=== PATIENT | female | born 1935 | race Caucasian/White ===

== ENCOUNTER 2018-09-08 12:01 | Inpatient (IN) | payer MEDICARE, OTHER ==
[~2018-09-08] VITALS: Ht 160 cm; Wt 54.0 kg
[2018-09-08] MEDS ORDERED: CARBIDOPA/LEVODOPA CR 50-200MG TABLET.SA PO SCH ×2 (12:30→21:00)
[2018-09-08] MEDS ORDERED: CARBIDOPA/LEVODOPA CR 50-200MG TABLET.SA PO ONE (12:31)
[2018-09-08] MEDS ORDERED: LEVO75TA7 PO (12:40)
[2018-09-08] MEDS ORDERED: POLYVINYL ALCOHOL OPHT DROPS 15 ML BOTTLE ONE (12:44)
[2018-09-08] MEDS ORDERED: POLYVINYL ALCOHOL OPHT DROPS 15 ML BOTTLE OP ONE (12:45)
[2018-09-08] MEDS ORDERED: ASPI81TA31 PO (12:52)
[2018-09-08] MEDS ORDERED: LEVO100T10 PO (12:52)
[2018-09-08] MEDS ORDERED: ATOR20TA PO (12:52)
[2018-09-08] MEDS ORDERED: CARB1TAB40 PO ×2 (12:52)
[2018-09-08] MEDS ORDERED: OXYC-451 PO (12:52)
[2018-09-08] MEDS ORDERED: ALPR0.5T8 PO (12:52)
[2018-09-08] MEDS ORDERED: QUET25TA34 PO (12:52)
[2018-09-08] MEDS ORDERED: OXYB5TAB11 PO (12:52)
[2018-09-08 15:00] VITALS: BP 104/46
[2018-09-08] MEDS ORDERED: MAGNESIUM HYDROXIDE 30 ML LIQUID UDC PO PRN (15:15)
[2018-09-08] MEDS ORDERED: MAG HYDROX/AL HYDROX/SIMETH 30 ML LIQUID UDC PO PRN (15:15)
[2018-09-08] MEDS ORDERED: LORAZEPAM 0.5 MG TABLET PO PRN (15:15)
[2018-09-08] MEDS ORDERED: LORAZEPAM 1 MG TABLET PO PRN (16:15)
[2018-09-08] MEDS: CARBIDOPA/LEVODOPA CR 50-200MG TABLET.SA PO SCH ×2 (17:22→20:39)
[2018-09-08] MEDS: ACETAMINOPHEN 325 MG TABLET PO PRN (18:13)
[2018-09-08 20:25] VITALS: BP 139/53
[2018-09-08] MEDS: ATORVASTATIN 20 MG TABLET PO SCH (20:39)
[2018-09-08] MEDS: risperiDONE 0.5 MG TABLET PO SCH (20:39)
[2018-09-09] MEDS: LEVOTHYROXINE SODIUM 100 MCG TABLET PO SCH (06:24)
[2018-09-09 07:30] VITALS: BP 117/52
[2018-09-09] MEDS ORDERED: OXYBUTYNIN CHLORIDE 5 MG TABLET PO SCH (09:00)
[2018-09-09] MEDS ORDERED: ASPIRIN 81 MG TAB.CHEW PO SCH (09:00)
[2018-09-09] MEDS: CARBIDOPA/LEVODOPA CR 50-200MG TABLET.SA PO SCH ×4 (09:03→20:48)
[2018-09-09] MEDS: OXYBUTYNIN XL 5 MG TABSR PO SCH (09:03)
[2018-09-09] MEDS: risperiDONE 0.5 MG TABLET PO SCH ×2 (09:03→20:48)
[2018-09-09] MEDS: ACETAMINOPHEN 325 MG TABLET PO PRN ×2 (09:03→23:54)
[2018-09-09 15:21] VITALS: BP 165/52
[2018-09-09] MEDS: ATORVASTATIN 20 MG TABLET PO SCH (20:48)
[2018-09-10] MEDS: LEVOTHYROXINE SODIUM 100 MCG TABLET PO SCH (06:33)
[2018-09-10 07:30] VITALS: BP 132/56
[2018-09-10] MEDS: CARBIDOPA/LEVODOPA CR 50-200MG TABLET.SA PO SCH ×4 (08:17→20:17)
[2018-09-10] MEDS: OXYBUTYNIN XL 5 MG TABSR PO SCH (08:17)
[2018-09-10] MEDS: risperiDONE 0.5 MG TABLET PO SCH ×2 (08:17→20:17)
[2018-09-10 16:48] VITALS: BP 99/46
[2018-09-10] MEDS: ATORVASTATIN 20 MG TABLET PO SCH (20:17)
[2018-09-10 21:54] VITALS: BP 112/46
[2018-09-11] MEDS: LEVOTHYROXINE SODIUM 100 MCG TABLET PO SCH (06:10)
[2018-09-11 07:30] VITALS: BP 119/69
[2018-09-11] MEDS: risperiDONE 0.5 MG TABLET PO SCH (08:13)
[2018-09-11] MEDS: OXYBUTYNIN XL 5 MG TABSR PO SCH (08:13)
[2018-09-11] MEDS: CARBIDOPA/LEVODOPA CR 50-200MG TABLET.SA PO SCH ×4 (08:14→20:55)
[2018-09-11 16:00] VITALS: BP 124/65
[2018-09-11] MEDS: ATORVASTATIN 20 MG TABLET PO SCH (20:55)
[2018-09-11] MEDS: risperiDONE 1 MG TABLET PO SCH (20:56)
[2018-09-11 21:11] VITALS: BP 128/38
[2018-09-12] MEDS: LEVOTHYROXINE SODIUM 100 MCG TABLET PO SCH (06:04)
[2018-09-12 07:30] VITALS: BP 116/52
[2018-09-12] MEDS: risperiDONE 1 MG TABLET PO SCH ×2 (08:28→21:43)
[2018-09-12] MEDS: OXYBUTYNIN XL 5 MG TABSR PO SCH (08:29)
[2018-09-12] MEDS: CARBIDOPA/LEVODOPA CR 50-200MG TABLET.SA PO SCH ×4 (08:29→21:42)
[2018-09-12 16:00] VITALS: BP 14/60
[2018-09-12 20:21] VITALS: BP 112/46
[2018-09-12] MEDS: ATORVASTATIN 20 MG TABLET PO SCH (21:43)
[2018-09-13] MEDS: LEVOTHYROXINE SODIUM 100 MCG TABLET PO SCH (06:29)
[2018-09-13 07:30] VITALS: BP 100/42
[2018-09-13] MEDS: risperiDONE 1 MG TABLET PO SCH ×2 (08:15→20:24)
[2018-09-13] MEDS: CARBIDOPA/LEVODOPA CR 50-200MG TABLET.SA PO SCH ×4 (08:15→20:28)
[2018-09-13] MEDS: OXYBUTYNIN XL 5 MG TABSR PO SCH (08:16)
[2018-09-13 16:06] VITALS: BP 129/57
[2018-09-13 20:00] VITALS: BP 119/47
[2018-09-13] MEDS: ATORVASTATIN 20 MG TABLET PO SCH (20:24)
[2018-09-14] MEDS: LEVOTHYROXINE SODIUM 100 MCG TABLET PO SCH (06:11)
[2018-09-14 07:30] VITALS: BP 118/38
[2018-09-14] MEDS: OXYBUTYNIN XL 5 MG TABSR PO SCH (08:52)
[2018-09-14] MEDS: risperiDONE 1 MG TABLET PO SCH ×2 (08:52→20:03)
[2018-09-14] MEDS: CARBIDOPA/LEVODOPA CR 50-200MG TABLET.SA PO SCH ×4 (08:52→20:03)
[2018-09-14 16:08] VITALS: BP 119/56
[2018-09-14 20:00] VITALS: BP 135/51
[2018-09-14] MEDS: ATORVASTATIN 20 MG TABLET PO SCH (20:03)
[2018-09-14] MEDS: TEMAZEPAM 7.5 MG CAPSULE PO PRN (21:06)
[2018-09-15] MEDS: LEVOTHYROXINE SODIUM 100 MCG TABLET PO SCH (06:34)
[2018-09-15 07:30] VITALS: BP 118/47
[2018-09-15] MEDS: OXYBUTYNIN XL 5 MG TABSR PO SCH (09:15)
[2018-09-15] MEDS: risperiDONE 1 MG TABLET PO SCH ×2 (09:15→21:00)
[2018-09-15] MEDS: CARBIDOPA/LEVODOPA CR 50-200MG TABLET.SA PO SCH ×4 (09:15→21:00)
[2018-09-15 16:09] VITALS: BP 120/64
[2018-09-15 20:06] VITALS: BP 130/50
[2018-09-15] MEDS: DOCUSATE SODIUM 100 MG CAPSULE PO SCH (21:00)
[2018-09-16] MEDS: ACETAMINOPHEN 325 MG TABLET PO PRN ×3 (04:04→23:12)
[2018-09-16] MEDS: LEVOTHYROXINE SODIUM 100 MCG TABLET PO SCH (07:17)
[2018-09-16 07:30] VITALS: BP 122/85
[2018-09-16 07:50] LABS: BASOPHILS # (AUTO) 0.1 K/uL (0.0-8.0); BASOPHILS % (AUTO) 1.4 % (0.0-2.0); EOSINOPHILS # (AUTO) 0.2 K/uL (0.0-0.7); EOSINOPHILS % (AUTO) 2.6 % (0.0-7.0); HEMATOCRIT 32.7 % (31.2-41.9); HEMOGLOBIN 11.2 g/dL (10.9-14.3); LYMPHOCYTES # (AUTO) 0.9 K/uL (20.0-40.0); LYMPHOCYTES % (AUTO) 15.1 % (20.5-51.5); MEAN CORPUSCULAR HEMOGLOBIN 31.7 uug (24.7-32.8); MEAN CORPUSCULAR HGB CONC 34 g/dL (32.3-35.6); MEAN CORPUSCULAR VOLUME 92.3 fL (75.5-95.3); MONOCYTES # (AUTO) 0.7 K/uL (2.0-10.0); MONOCYTES % (AUTO) 12.3 % (0.0-11.0); NEUTROPHILS # (AUTO) 4.1 K/uL (1.8-8.9); NEUTROPHILS % (AUTO) 68.6 % (38.5-71.5); PLATELET COUNT (AUTO) 309 K/uL (179-408); RED BLOOD CELL COUNT(AUTO) 3.54 MIL/uL (3.63-4.92); WHITE BLOOD COUNT (AUTO) 5.9 K/uL (3.8-11.8)
[2018-09-16 08:07] LABS: ALKALINE PHOSPHATASE 49 U/L (50-136); ASPARTATE AMINOTRANSFERASE 10 U/L (15-37); BILIRUBIN,TOTAL 0.5 mg/dL (0.2-1.0); CARBON DIOXIDE 29 mmol/L (21-32); CHLORIDE 103 mmol/L (98-107); CREATININE 0.7 mg/dL (0.6-1.3); GLUCOSE 117 mg/dL (74-106); MAGNESIUM 2.3 mg/dL (1.8-2.4); PHOSPHOROUS 3.8 mg/dL (2.5-4.9); TOTAL PROTEIN, SERUM 7.1 g/dL (6.4-8.2); UREA NITROGEN, BLOOD 20 mg/dL (7-18)
[2018-09-16 08:21] LABS: ALANINE AMINOTRANSFERASE < 6 U/L (14-59)
[2018-09-16] MEDS: CARBIDOPA/LEVODOPA CR 50-200MG TABLET.SA PO SCH ×4 (09:34→20:09)
[2018-09-16] MEDS: OXYBUTYNIN XL 5 MG TABSR PO SCH (09:34)
[2018-09-16] MEDS: risperiDONE 1 MG TABLET PO SCH ×2 (09:34→20:10)
[2018-09-16 16:16] VITALS: BP 117/50
[2018-09-16] MEDS: DOCUSATE SODIUM 100 MG CAPSULE PO SCH (20:09)
[2018-09-16 21:07] VITALS: BP 114/45
[2018-09-16] MEDS: TEMAZEPAM 7.5 MG CAPSULE PO PRN (22:05)
[2018-09-17 07:30] VITALS: BP 129/58
[2018-09-17] MEDS: LEVOTHYROXINE SODIUM 100 MCG TABLET PO SCH (07:55)
[2018-09-17] MEDS: OXYBUTYNIN XL 5 MG TABSR PO SCH (08:30)
[2018-09-17] MEDS: risperiDONE 1 MG TABLET PO SCH ×2 (08:30→20:44)
[2018-09-17] MEDS: CARBIDOPA/LEVODOPA CR 50-200MG TABLET.SA PO SCH ×4 (08:30→20:44)
[2018-09-17 15:49] VITALS: BP 101/44
[2018-09-17 20:07] VITALS: BP 123/45
[2018-09-17] MEDS: DOCUSATE SODIUM 100 MG CAPSULE PO SCH (20:44)
[2018-09-17] MEDS: TEMAZEPAM 7.5 MG CAPSULE PO PRN (22:05)
[2018-09-18] MEDS: LEVOTHYROXINE SODIUM 100 MCG TABLET PO SCH (06:00)
[2018-09-18 07:30] VITALS: BP 149/60
[2018-09-18] MEDS: OXYBUTYNIN XL 5 MG TABSR PO SCH (08:03)
[2018-09-18] MEDS: CARBIDOPA/LEVODOPA CR 50-200MG TABLET.SA PO SCH ×2 (08:03→12:48)
[2018-09-18] MEDS: risperiDONE 1 MG TABLET PO SCH (08:03)
== END 2018-09-18 14:00 | DRG 885 ==
LOC: ER 12:01 → GPS 14:47
PROVIDERS: ADMIT Psychiatry & Neurology Psychiatry; ATTEND Nurse Practitioner Acute Care
DX: F29 Unspecified psychosis not due to a substance or known physiological condition (principal); F41.0 Panic disorder [episodic paroxysmal anxiety]; G25.81 Restless legs syndrome; E03.9 Hypothyroidism, unspecified; E78.5 Hyperlipidemia, unspecified; N32.81 Overactive bladder; Z98.82 Breast implant status; Z90.13 Acquired absence of bilateral breasts and nipples; E86.0 Dehydration; H40.9 Unspecified glaucoma; F03.90 Unspecified dementia, unspecified severity, without behavioral disturbance, psychotic disturbance, mood disturbance, and anxiety; Z90.2 Acquired absence of lung [part of]; Z59.0 Homelessness; Z88.8 Allergy status to other drugs, medicaments and biological substances; Z79.82 Long term (current) use of aspirin; Z88.6 Allergy status to analgesic agent; Z88.0 Allergy status to penicillin; Z79.899 Other long term (current) drug therapy
CPT/HCPCS: 36415; 71045; 83735; 84100; 84443; 85025; 93005; A4663